=== PATIENT | female | born 1995 | race African-American/Black ===

== ENCOUNTER 2017-11-16 07:49 | Emergency (ER) | payer OTHER ==
[~2017-11-16] VITALS: Ht 193 cm; Wt 170.2 kg
[2017-11-16 09:20] VITALS: BP 124/77
== END 2017-11-16 09:21 | disposition home or self-care (01) ==
LOC: EME 07:49
DX: F41.9 Anxiety disorder, unspecified (principal); F43.0 Acute stress reaction; F17.200 Nicotine dependence, unspecified, uncomplicated
CPT/HCPCS: 90839; 99281; 99283

== ENCOUNTER 2018-03-14 11:06 | Emergency (ER) | payer OTHER ==
[~2018-03-14] VITALS: Ht 190.5 cm; Wt 167.5 kg
[2018-03-14 13:38] VITALS: BP 141/76
== END 2018-03-14 13:38 | disposition home or self-care (01) ==
LOC: EME 11:06
DX: O9A.211 Injury, poisoning and certain other consequences of external causes complicating pregnancy, first trimester (principal); S76.012A Strain of muscle, fascia and tendon of left hip, initial encounter; Z3A.12 12 weeks gestation of pregnancy; X58.XXXA Exposure to other specified factors, initial encounter; Z87.891 Personal history of nicotine dependence
CPT/HCPCS: 73502; 73552; 99281; 99284